=== PATIENT | female | born 1935 | race Caucasian/White ===

== ENCOUNTER 2016-10-31 07:41 | Outpatient (CLI) | payer MEDICARE, OTHER ==
[2016-10-31 08:22] LABS: #Basophils 0.1 thou/uL (0.0-0.2); #Eosinphils 0.2 thou/uL (0.0-0.7); #Lymphocytes 1.9 thou/uL (1.20-3.40); #Monocytes 0.6 thou/uL (0.11-0.59); #Neutrophils 5.4 thou/uL (1.40-6.50); %Basophils 1.1 % (0.0-1.0); %Eosinophils 2.5 % (0.0-10.0); %Lymphocytes 23.5 % (21.0-51.0); %Monocytes 6.7 % (0.0-10.0); %Neutrophils 66.1 % (42.0-75.0); Hemoglobin 13.9 g/dL (12.0-16.0); Mean Corpuscular HGB CONC 33.6 g/dL (32.0-36.0); Mean Corpuscular Volume 92.3 fl (81.0-99.0); Mean Platelet Volume 7.7 fL (7.4-10.4); Platelet Count 218 thou/uL (130-400); RBC Distribution Width 11.7 % (11.5-14.5); Red Blood Cell (RBC) Count 4.47 mill/uL (4.20-5.40); White Blood Cell (WBC) Count 8.2 thou/uL (4.8-10.8)
[2016-10-31 09:19] LABS: ALT (SGPT) 19 U/L (8-55); AST (SGOT) 20 U/L (5-34); Albumin 3.8 g/dL (3.4-4.8); Alkaline Phosphatase 103 U/L (40-150); Anion Gap 12 mmol/L (10-20); BUN (Urea Nitrogen) 13 mg/dL (9.8-20.1); Bilirubin, Total 0.7 mg/dL (0.2-1.2); Calc. Creatinine Clearance 0 mL/min (70-130); Calcium 9.4 mg/dL (7.8-10.44); Carbon Dioxide 24 mmol/L (23-31); Cardiac Risk 4.3 (Less than 4.5); Chloride 106 mmol/L (98-107); Cholesterol 192 mg/dl (< 200 Desired); Estimated GFR-MDRD 55; Globulin 3.6 g/dL (2.4-3.5); Glucose 93 mg/dL (83-110); HDL Cholesterol 45 mg/dL (>60 Neg Risk); LDL Cholesterol, Calculated 131 mg/dL; Potassium 4.3 mmol/L (3.5-5.1); Protein, Total 7.4 g/dL (6.0-8.3); Sodium 138 mmol/L (136-145); Triglycerides 82 mg/dL (Less than 150)
[2016-10-31 16:59] LABS: Bilirubin Negative (Negative); Blood, Urine Moderate (Negative); Clarity Cloudy (Clear); Glucose, Urine (Dipstick) Negative (Negative); Leukocyte Large (Negative); Nitrite Negative (Negative); Protein, Urine (Dipstick) 30 mg/dL (Neg-Trace); Urobilinogen 0.2 mg/dL (0.2-1.0)
[2016-10-31 17:00] LABS: Bacteria/HPF 4+ HPF (None Seen)
== END 2016-10-31 07:42 | disposition home or self-care (01) ==
LOC: MADLABBHPM 07:41
PROVIDERS: ATTEND Family Medicine
DX: Z00.00 Encounter for general adult medical examination without abnormal findings (principal)
CPT/HCPCS: 36415; 80053; 80061; 81001; 84443; 85025; 87077; 87086; 87186

== ENCOUNTER 2017-09-28 14:09 | Emergency (ER) | payer MEDICARE ==
[2017-09-28] MEDS ORDERED: Lidocaine 1% 20 ML MDV ONE (14:33)
[2017-09-28] MEDS ORDERED: Bupivacaine PF 0.5% 30 ML VIAL ONE (14:33)
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
== END 2017-09-28 15:30 | disposition home or self-care (01) ==
LOC: MADERS 14:09
DX: S80.11XA Contusion of right lower leg, initial encounter (principal); V43.52XA Car driver injured in collision with other type car in traffic accident, initial encounter
CPT/HCPCS: J2001; S0020

== ENCOUNTER 2024-01-06 17:43 | Inpatient (IN) | payer MEDICARE ==
[2024-01-06] MEDS ORDERED: Ondansetron ODT 4 MG TAB PO PRN (18:12)
[2024-01-06] MEDS ORDERED: Non-Formulary Item 1 EACH (Mirtazapine [Mirtazapine] 7.5 MG Tablet) PO SCH (21:00)
[2024-01-06] MEDS: Senokot S 8.6-50 MG TAB PO SCH (23:23)
[2024-01-06 23:31] VITALS: BMI 21.9
[2024-01-07] MEDS: Milk Of Magnesia 30 ML UDCUP PO SCH (08:31)
[2024-01-07] MEDS: Mirtazapine 15 MG TAB PO SCH (21:39)
[2024-01-07] MEDS: Donepezil HCl 10 MG TAB PO SCH (21:39)
[2024-01-08] MEDS: traMADol HCl 50 MG TAB PO PRN (06:03)
[2024-01-08] MEDS: Pantoprazole DR 40 MG TAB PO SCH (09:42)
[2024-01-08] MEDS: Acetaminophen 325 MG TAB PO PRN (11:22)
[2024-01-08] MEDS: Acetaminophen 500 MG TAB PO SCH (18:09)
[2024-01-08] MEDS: Enoxaparin 30 MG (0.3 mL) SYRINGE SC SCH (21:07)
[2024-01-15] MEDS: Acetaminophen 500 MG TAB PO PRN (11:59)
[2024-01-15] MEDS ORDERED: Milk Of Magnesia 30 ML UDCUP PO PRN (13:40)
[2024-01-15] MEDS ORDERED: Senokot S 8.6-50 MG TAB PO PRN (13:41)
[2024-01-19] MEDS: FLU (Fluad Triv) TS24-25 (65UP)/MF59C/PF 45 MCG/0.5 ML Syringe ONE (14:33)
[2024-01-22 12:38] VITALS: BMI 21.7
[2024-01-22 18:51] VITALS: TEMP 97.8
[2024-01-23 07:14] VITALS: BP 131/75
== END 2024-01-23 15:44 | DRG 945 ==
LOC: MADMS 22:45
PROVIDERS: ADMIT Family Medicine; ATTEND Family Medicine
PROC: F07Z9ZZ Gait Training/Functional Ambulation Treatment (ICD-10-PCS; principal; 2024-01-17)
DX: R53.81 Other malaise (principal); F02.A4 Dementia in other diseases classified elsewhere, mild, with anxiety; R26.89 Other abnormalities of gait and mobility; G30.9 Alzheimer's disease, unspecified; Z90.49 Acquired absence of other specified parts of digestive tract; Z90.12 Acquired absence of left breast and nipple; Z98.51 Tubal ligation status; Z85.3 Personal history of malignant neoplasm of breast
CPT/HCPCS: J1650

== ENCOUNTER 2024-12-16 08:42 | Emergency (ER) | payer MEDICARE ==
[2024-12-16 10:15] LABS: #Basophils 0.1 thou/uL (0.0-0.2); #Eosinophils 0.1 thou/uL (0.0-0.7); #Lymphocytes 1.1 thou/uL (1.20-3.40); #Monocytes 0.5 thou/uL (0.11-0.59); #Neutrophils 10.3 thou/uL (1.40-6.50); %Basophils 0.5 % (0.0-1.0); %Eosinophils 0.8 % (0.0-10.0); %Lymphocytes 9.3 % (21.0-51.0); %Monocytes 4.4 % (0.0-10.0); %Neutrophils 84.9 % (42.0-75.0); Hematocrit 39.3 % (36.0-47.0); Hemoglobin 12.9 g/dL (12.0-16.0); Mean Corpuscular Hemoglobin 29.7 pg (27.0-31.0); Mean Corpuscular Volume 90.9 fl (78.0-98.0); Platelet Count 280 10x3/uL (130-400); Red Blood Cell (RBC) Count 4.33 mill/uL (4.20-5.40); White Blood Cell (WBC) Count 12.2 10x3/uL (4.8-10.8)
[2024-12-16 10:31] LABS: ALT (SGPT) 10 U/L (Less than 34); AST (SGOT) 20 U/L (11-34); Albumin 3.4 g/dL (3.1-4.5); Alkaline Phosphatase 115 U/L (40-110); Anion Gap 15 mmol/L (10-20); BUN (Urea Nitrogen) 15 mg/dL (9.8-20.1); Bilirubin, Total 0.6 mg/dL (0.3-1.2); Calc. Creatinine Clearance 0 mL/min (70-130); Calcium 9.3 mg/dL (7.8-10.44); Carbon Dioxide 22 mmol/L (23-31); Chloride 109 mmol/L (98-107); Globulin 4.0 g/dL (2.4-3.5); Glucose 95 mg/dL (83-110); Potassium 3.7 mmol/L (3.5-5.1); Sodium 142 mmol/L (136-145)
== END 2024-12-16 12:10 | disposition short-term general hospital (02) ==
LOC: MADERS 08:42
DX: S32.17XA Type 4 fracture of sacrum, initial encounter for closed fracture (principal); S16.1XXA Strain of muscle, fascia and tendon at neck level, initial encounter; S00.03XA Contusion of scalp, initial encounter; W01.0XXA Fall on same level from slipping, tripping and stumbling without subsequent striking against object, initial encounter; Y92.129 Unspecified place in nursing home as the place of occurrence of the external cause
CPT/HCPCS: 70450; 72125; 72192; 80053; 85025